=== PATIENT | male | born 1995 | race Caucasian/White ===

== ENCOUNTER 2020-06-29 14:09 | Outpatient (CLI) | payer BC, SELFPAY ==
[2020-06-29 14:35] LABS: Basophils Absolute Auto 0.1 K/mm3 (0.0-0.1); Basophils Percent Auto 0.8 % (0.2-1.2); Eosinophils Absolute Auto 0.1 K/mm3 (0-0.3); Eosinophils Percent Auto 1.4 % (0-4.4); Hematocrit 45.6 % (42.0-52.0); Hemoglobin 15.7 g/dL (14.0-18.0); Immature Granulocyte Absolute 0.02 K/mm3 (0.00-0.031); Immature Granulocyte Percent A 0.3 % (0-0.5); Lymphocytes Percent Auto 34.2 % (18.3-44.2); Mean Corpuscular HGB Conc 34.4 g/dl (32-36); Mean Corpuscular Hemoglobin 31.7 pg (26-34); Mean Corpuscular Volume 91.9 fl (80-100); Mean Platelet Volume 9.9 fl (7.4-10.4); Monocytes Absolute Auto 0.5 K/mm3 (0.1-0.6); Monocytes Percent Auto 6.2 % (2.6-8.5); Neutrophils Absolute Auto 4.5 K/mm3 (1.3-6.7); Neutrophils Percent Auto 57.1 % (45.5-73.1); Platelet Count Result 276 k/mm3 (150-375); Red Blood Count 4.96 M/mm3 (4.6-6.20); Red Cell Distribution Width 12.2 % (11.5-14.5); White Blood Count 7.9 K/mm3 (4.5-10.0)
[2020-06-29 14:51] LABS: Alanine Aminotransferase 36 U/L (4-50); Albumin Level 4.6 g/dL (3.5-5.1); Alkaline Phosphatase 63 U/L (38-126); Anion Gap 7 mmol/L (8-16); Aspartate Amino Transferase 32 U/L (17-59); Bilirubin,Total 0.5 mg/dL (0.2-1.3); Blood Urea Nitrogen 14 mg/dL (9-20); Calcium 9.3 mg/dL (8.4-10.2); Carbon Dioxide 29 mmol/L (22-30); Chloride 103 mmol/L (98-107); Cholesterol 173 mg/dL (0-200); Estimated Glomerular Filt Rate > 60; Glucose 98 mg/dL (75-110); HDL Direct 59 mg/dL; Potassium 3.6 mmol/L (3.4-5.0); Sodium 139 mmol/L (137-145); Triglycerides 136 mg/dL (<150)
[2020-06-29 15:02] LABS: LDL Cholesterol Direct 91 mg/dL
[2020-06-29 15:29] LABS: Vitamin D 25 Hydroxy 30.5 ng/mL
== END 2020-06-29 14:10 | disposition home or self-care (01) ==
PROVIDERS: PCP Family Medicine; Visit Provider Nurse Practitioner Family
DX: R03.0 Elevated blood-pressure reading, without diagnosis of hypertension (principal); Z68.36 Body mass index [BMI] 36.0-36.9, adult; Z13.1 Encounter for screening for diabetes mellitus; Z13.220 Encounter for screening for lipoid disorders; Z13.29 Encounter for screening for other suspected endocrine disorder; E55.9 Vitamin D deficiency, unspecified
CPT/HCPCS: 36415; 80053; 80061; 82306; 84443; 85025

== ENCOUNTER 2021-09-28 17:21 | Emergency (ER) | payer BC, SELFPAY ==
--- NOTE | 2021-09-28 18:06 | PC.NURSE ---
No answer when called for triage.
== END 2021-09-28 17:41 | disposition left against medical advice (07) ==
LOC: ANHED 18:15
PROVIDERS: PCP Family Medicine
DX: Z53.21 Procedure and treatment not carried out due to patient leaving prior to being seen by health care provider (principal)
CPT/HCPCS: 99199

== ENCOUNTER 2022-02-16 21:18 | Emergency (ER) | payer SELFPAY ==
[2022-02-16 21:35] VITALS: BP 123/91; PULSE 108; RESP 14; TEMP 36.7; O2SAT 98
--- NOTE | 2022-02-16 22:16 | PC.NURSE ---
Patient began having silent seizures. MD called and verbal order for 2mg of ativan was given. Patient had about 3 seizures lasting about 20 seconds each. Patient is hearing voices at this time.
--- NOTE | 2022-02-16 22:19 | ED.GENADULT ---
HPI - General Adult General Chief complaint: Psychiatric Symptoms Stated complaint: manic, hallucinations Time Seen by Provider: 02/16/22 21:51 History of Present Illness HPI narrative: 26-year-old male presented to the emergency department for evaluation of increased manic episodes. Patient reports and he and has since had issues with asa and depression. Patient states over the last 4 days he has increased issues with asa and has been hearing voices. Patient states is able to function during the day but at nighttime he has worsening voices. Voices do tell him to hurt himself. Related Data Allergies Allergy/AdvReac Type Severity Reaction Status Date / Time penicillin V Allergy Unknown Unknown Verified 02/16/22 22:42 Penicillins Allergy Unknown Unknown Verified 02/16/22 22:42 codeine AdvReac Mild Unknown Verified 02/16/22 22:42 Review of Systems Review of Systems: CONSTITUTIONAL: Denies fever, chills, or sweats. EYES: Denies visual changes, redness, or discharge. ENT: Denies rhinorrhea, congestion, sore throat, or otalgia. CARDIOVASCULAR: Denies chest pain, palpitations, or edema. RESPIRATORY: Denies cough or dyspnea. GASTROINTESTINAL: Denies abdominal pain, nausea, vomiting, or diarrhea. GENITOURINARY: Denies dysuria or hematuria. SKIN: Denies rash or itching. MUSCULOSKELETAL: Denies back pain, joint pain, or myalgia. NEUROLOGIC: Denies headache, numbness, or weakness. PSYCHIATRIC: See HPI [facility] Past Medical History Medical History ADHD Auditory hallucinations BMI 37.0-37.9, adult Depression Hives Insomnia Paranoia Post concussion syndrome Psychosis Seizures Family History Family History Grandparent Hypertension Family history of malignant neoplasm Family history of coronary artery disease Diabetes mellitus Social History Social History Tobacco type: cigarettes Alcohol intake: former Substance use type: does not use Additional occupation/education comments: Float Charge nurse at [employer] Gender identity (if verbalized by the patient): Male Sexual Orientation (if Verbalized by the Patient): Straight or Heterosexual Exam Narrative: APPEARANCE: Well appearing, no pain, no distress, well-nourished. HEAD: normocephalic, atraumatic. EYES: PERRLA/EOMI, conjunctivae clear. NOSE: Normal no drainage NECK: Supple. No adenopathy, no masses. RESPIRATORY: Airway patent, respirations nonlabored. Clear to auscultation bilaterally, no rales, rhonchi, wheezing. CARDIOVASCULAR: Regular rate and rhythm without murmurs rubs or gallops. ABDOMINAL: Soft, nontender, nondistended, normal bowel sounds MUSCULOSKELETAL: Moves all extremities. Strength/ROM intact, No edema, No calf tenderness. NEURO: Alert. Cranial nerves II through XII intact. Grossly intact SKIN: Warm, dry. Normal Color Course Course Emergency Course: Patient was having some seizure-like activity and was treated with 1 g of Keppra. Patient does take topiramate at home. Patient was also treated with Ativan. Patient was able to rest in the emergency department for few hours. On patient woke up he was no longer feeling manic and declined to have the crisis counselor evaluate him. Patient's was comfortable with this plan Reevaluation(s) Reevaluation #1: Patient reports he does feel improved with treatment. Patient is much less manic than on arrival. Patient declined to speak to the crisis counselor. Patient states he is wishing to go home. Vital Signs Vital signs: Vital Signs Temperature 98.0 F 02/16/22 21:35 Pulse Rate 108 H 02/16/22 21:35 Respiratory Rate 14 02/16/22 21:35 Blood Pressure 123/91 H 02/16/22 21:35 Pulse Oximetry 98 02/16/22 21:35 Oxygen Delivery Room Air 02/16/22 21:35 Temperature 98.0 F 02/16/22 21:35 Pulse Rate 95 02/17/22 00:15 R
[2022-02-16] MEDS: levETIRAcetam 1000MG/NACL100ML 1,000 MG/100 ML BAG 400 MG IVPB (22:38)
[2022-02-16] MEDS: SODIUM CHLORIDE 0.9% IV 1,000 ML 999 ML IV CONT (22:38)
--- NOTE | 2022-02-16 22:55 | PC.NURSE ---
Patient has been having mini seizures every few minutes for the last 30 minutes. Seizures have been lasting around 15-20 seconds each. Patient comes out and jumps in the bed. Patient has no postictal period. Patient given Keppra. Patient's vital signs have stayed WNL
[2022-02-16 22:57] LABS: Basophils Absolute Auto 0.1 K/mm3 (0.0-0.1); Basophils Percent Auto 0.5 % (0.2-1.2); Eosinophils Absolute Auto 0.1 K/mm3 (0-0.3); Eosinophils Percent Auto 0.9 % (0-4.4); Hematocrit 39.7 % (42.0-52.0); Hemoglobin 13.6 g/dL (14.0-18.0); Immature Granulocyte Absolute 0.02 K/mm3 (0.00-0.031); Immature Granulocyte Percent A 0.2 % (0-0.5); Lymphocytes Absolute Auto 2.57 K/mm3 (0.9-3.2); Lymphocytes Percent Auto 26.6 % (18.3-44.2); Mean Corpuscular HGB Conc 34.3 g/dl (32-36); Mean Corpuscular Hemoglobin 31.4 pg (26-34); Mean Corpuscular Volume 91.7 fl (80-100); Mean Platelet Volume 10.2 fl (7.4-10.4); Monocytes Percent Auto 10.5 % (2.6-8.5); Neutrophils Absolute Auto 5.9 K/mm3 (1.3-6.7); Neutrophils Percent Auto 61.3 % (45.5-73.1); Platelet Count Result 242 k/mm3 (150-375); Red Blood Count 4.33 M/mm3 (4.6-6.20); White Blood Count 9.7 K/mm3 (4.5-10.0)
[2022-02-16] MEDS: LORazepam INJ (*CRX) 2 MG/ML VIAL 1 MG IV PUSH (22:58)
[2022-02-16 23:12] LABS: Alanine Aminotransferase 51 U/L (6-50); Albumin Level 4.6 g/dL (3.5-5.1); Alkaline Phosphatase 68 U/L (38-126); Anion Gap 12 mmol/L (8-16); Aspartate Amino Transferase 89 U/L (17-59); Bilirubin,Total 0.5 mg/dL (0.2-1.3); Blood Urea Nitrogen 14 mg/dL (9-20); Carbon Dioxide 21 mmol/L (22-30); Chloride 107 mmol/L (98-107); Estimated CRCL calculation 125 ml/min; Estimated Glomerular Filt Rate > 60; Glucose 102 mg/dL (65-110); Potassium 3.6 mmol/L (3.4-5.0); Sodium 140 mmol/L (137-145)
[2022-02-16 23:17] LABS: Acetaminophen < 10 ug/mL (10-30); Ethanol < 10 mg/dL (<10); Salicylate < 1.0 mg/dL (2-20)
[2022-02-16 23:43] LABS: Thyroid Stimulating Hormone 0.978 uIU/mL (0.465-4.680)
[2022-02-17 00:15] VITALS: PULSE 95; RESP 26; O2SAT 96
[2022-02-17 00:56] LABS: Mucus Urine Rare /lpf; Squamous Epithelial Cell Urine Rare /hpf (Few)
[2022-02-17 01:00] LABS: Appearance Urine Cloudy (Clear); Bilirubin Urine Negative (Negative); Blood Urine Trace-intact (Negative); Color Urine Yellow (Yellow); Glucose Urine UA Negative (Negative); Ketones Urine Trace mg/dL (Negative); Leukocyte Esterase Ur Negative LEU/UL (Negative); Nitrate Urine Negative (Negative); Protein Urine Negative (Negative); Urobilinogen Urine 0.2 mg/dL (<2.0); pH Urine 7.5 (5.0-9.0)
[2022-02-17 01:02] LABS: Add Urine Microscopic? YES
[2022-02-17 01:06] LABS: Barbiturate Screen Urine Negative (Negative); Benzodiazepines Screen Urine Negative (Negative)
[2022-02-17 01:19] LABS: Cannabinoid Screen Urine Negative (Negative); Cocaine Screen Urine Negative (Negative); Methadone Screen Urine Negative (Negative); Opiate Screen Urine Negative (Negative); Phencyclidine Screen Urine Negative (Negative)
[2022-02-17 01:31] LABS: Amphetamine Screen Urine Positive (Negative)
--- NOTE | 2022-02-17 07:30 | PC.NURSE ---
called pt's spouse to come lemon picker pt. she states she will be here in a little bit to come get him.
[2022-02-17 08:08] VITALS: BP 112/91; PULSE 81; RESP 18; O2SAT 100
== END 2022-02-17 08:10 | disposition home or self-care (01) ==
PROVIDERS: Emergency Medicine; Emergency Provider Emergency Medicine; PCP Family Medicine
DX: F41.9 Anxiety disorder, unspecified (principal); R56.9 Unspecified convulsions; F90.9 Attention-deficit hyperactivity disorder, unspecified type; F32.A Depression, unspecified; F17.210 Nicotine dependence, cigarettes, uncomplicated
CPT/HCPCS: 36415; 51701; 80053; 80307; 81001; 84443; 85025; 96361; 96365; 96375; 99284; J1953; J2060; J7030

== ENCOUNTER 2022-02-26 01:01 | Emergency (ER) | payer OTHER, SELFPAY ==
[2022-02-26 01:05] VITALS: BP 107/85; PULSE 98; RESP 16; TEMP 36.1; O2SAT 100
--- NOTE | 2022-02-26 01:38 | ED.ANXIETY ---
HPI - Anxiety General Chief Complaint: Anxiety Stated Complaint: hallacinations, lack of sleep Time Seen by Provider: 02/26/22 01:08 History of Present Illness HPI narrative: 26-year-old male with a history of bipolar, psychosis, seizures, ADHD, postconcussion syndrome and insomnia presents to the emergency room for evaluation of insomnia for 3 days. Patient states he has been taking 400 mg of trazodone recently and has been unable to sleep. Patient reports having auditory hallucinations only at home for the past few days. Hallucinations are telling him that he is not good enough and that his is going to leave him for her ex-. Patient denies SI or HI. Patient is also tried Seroquel, which he says is not helpful with his insomnia. Related Data Allergies Allergy/AdvReac Type Severity Reaction Status Date / Time penicillin V Allergy Unknown Unknown Verified 02/16/22 22:42 Penicillins Allergy Unknown Unknown Verified 02/16/22 22:42 codeine AdvReac Mild Unknown Verified 02/16/22 22:42 Review of Systems Review of Systems: CONSTITUTIONAL: Denies fever, chills, or sweats. EYES: Denies visual changes, redness, or discharge. ENT: Denies rhinorrhea, congestion, sore throat, or otalgia. CARDIOVASCULAR: Denies chest pain, palpitations, or edema. RESPIRATORY: Denies cough or dyspnea. GASTROINTESTINAL: Denies abdominal pain, nausea, vomiting, or diarrhea. GENITOURINARY: Denies dysuria or hematuria. SKIN: Denies rash or itching. MUSCULOSKELETAL: Denies back pain, joint pain, or myalgia. NEUROLOGIC: Denies headache, numbness, dizziness, or weakness. PSYCHIATRIC: Denies anxiety or depression. 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 HEAD: Normocephalic, atraumatic. EYES: Conjunctivae normal, PERRLA and EOMI. CHEST: Clear to auscultation. No respiratory distress. No wheezes rales or rhonchi. HEART: Regular rate and rhythm. No murmur heard. Normal peripheral pulses. ABDOMEN: Soft, nontender, nondistended, normal active bowel sounds. EXTREMITIES: Normal range of motion. No edema. No clubbing or cyanosis SKIN: Warm, dry, no rash. No noted wounds NEURO: No focal deficits. Alert and oriented x3. MAEW. CN's II-XI intact bilaterally, normal gait PSYCH: Cooperative. Anxious and tearful. Course Vital Signs Vital signs: Vital Signs Temperature 36.1 C L 02/26/22 01:05 Pulse Rate 98 02/26/22 01:05 Respiratory Rate 16 02/26/22 01:05 Blood Pressure 107/85 02/26/22 01:05 Pulse Oximetry 100 02/26/22 01:05 Oxygen Delivery Room Air 02/26/22 01:05 Temperature 36.1 C L 02/26/22 01:05 Pulse Rate 98 02/26/22 01:05 Respiratory Rate 16 02/26/22 01:05 Blood Pressure 107/85 02/26/22 01:05 Pulse Oximetry 100 02/26/22 01:05 Oxygen Delivery Room Air 02/26/22 01:05 Discharge Plan Discharge Clinical Impression: Insomnia Patient Disposition: Home, Self-Care Condition: Stable Instructions: Antibiotic Form, Insomnia (ED) Additional Instructions: Follow-up with your primary care physician on Monday. Prescriptions: New zolpidem [Ambien] 10 mg tablet
== END 2022-02-26 02:00 | disposition home or self-care (01) ==
PROVIDERS: Emergency Provider Nurse Practitioner Family; PCP Family Medicine
DX: G47.00 Insomnia, unspecified (principal); F31.9 Bipolar disorder, unspecified; F90.9 Attention-deficit hyperactivity disorder, unspecified type; F17.210 Nicotine dependence, cigarettes, uncomplicated
CPT/HCPCS: 99283